=== PATIENT | male | born 1945 | race American Indian/Alaskan Native ===

== ENCOUNTER 2021-01-07 06:33 | Day surgery (SDC) | payer OTHER ==
[2021-01-02 10:14] LABS: Hematocrit 38.4 % (35.5-45.6); Hemoglobin 12.9 gm/dl (11.8-15.2); Mean Corpuscular HGB Conc 34 % (32-34); Mean Corpuscular Volume 92 fl (84-94); Platelet Count 213 K/mm3 (140-440); Red Blood Count 4.15 M/mm3 (3.65-5.03); Red Cell Distribution Width 15.3 % (13.2-15.2)
[2021-01-02 10:35] LABS: Albumin 3.3 g/dL (3.9-5); Calcium 8.9 mg/dL (8.4-10.2)
--- NOTE | 2021-01-02 10:44 | Anesthesia Consultation ---
Anesthesia Consult and Med Hx Date of service: 01/07/21 - Airway Anesthetic Teeth Evaluation: Dentures (upper and lower) ROM Head & Neck: Adequate Mental/Hyoid Distance: Adequate Mallampati Class: Class III Intubation Access Assessment: Possibly Difficult - Pulmonary Exam CTA: Yes - Cardiac Exam Cardiac Exam: RRR - Pre-Operative Health Status ASA Pre-Surgery Classification: ASA3 Proposed Anesthetic Plan: General - Pulmonary Hx Smoking: Yes (quit 1 yr) Hx Respiratory Symptoms: No COPD: Yes Home Oxygen Therapy: No Hx Sleep Apnea: No (MECHELLE PRE SCREEN HIGH RISK) - Cardiovascular System Hx Hypertension: Yes Hx Heart Attack/AMI: No Hx Percutaneous Transluminal Coronary Angioplasty (PTCA): No Hx Cardia Arrhythmia: No - Central Nervous System CVA: No Hx Psychiatric Problems: Yes (PTSD) - Endocrine Hx Renal Disease: No Hx Liver Disease: Yes (HCV s/p treatment; reports normal liver biopsy this year) Hx Insulin Dependent Diabetes: Yes (fasting BS 120s; instructed to take 1/2 dose insulin night before) Hx Thyroid Disease: No - Other Systems Hx Obesity: No - Additional Comments Anesthesia Medical History Comments: No hx anesthetic complications.
[~2021-01-07 06:33] MED LIST: GABAPENTIN 300 MG CAP PO NR; LACTATED RINGERS 1,000 ML IV SCH; MAGNESIUM OXIDE 400 MG TAB PO SCH
[2021-01-07] MEDS ORDERED: BACTERIOSTATIC SODIUM CHLORIDE 0.9% 30 ML VIAL INFILTRATI ONE (06:47)
[2021-01-07] MEDS ORDERED: GENTAMICIN/NS 80 MG/100 ML 100 ML IV SCH (07:00)
[2021-01-07] MEDS ORDERED: VANCOMYCIN/NS 1 GM/250 ML 1 GM/250 ML BAG IV NR (07:00)
--- NOTE | 2021-01-07 07:17 | Anesthesia Day of Surgery ---
Anesthesia Day of Surgery - Day of Surgery Patient Examined: Yes Patient H&P Reviewed: Yes Patient is NPO: Yes Beta Blockers: Yes
[2021-01-07] MEDS ORDERED: dexAMETHasone 20 MG/5 ML VIAL ONE (07:26)
[2021-01-07] MEDS ORDERED: LIDOCAINE MPF (2%) 20 MG/1 ML VIAL 5 ML ONE (07:26)
[2021-01-07] MEDS ORDERED: SUCCINYLCHOLINE CHLORIDE 200 MG/10 ML INJ MDV ONE (07:26)
[2021-01-07] MEDS ORDERED: fentaNYL 100 MCG/2 ML INJ ONE (07:27)
[2021-01-07] MEDS ORDERED: propofoL 200 MG/20 ML VIAL IV ONE (07:27)
[2021-01-07] MEDS ORDERED: BUPIVACAINE/PF (0.5%) 5 MG/1 ML 30 ML VIAL INFILTRATI ONE ×2 (07:29→09:14)
[2021-01-07] MEDS ORDERED: rifAMPin 600 MG VIAL ONE (07:29)
[2021-01-07] MEDS ORDERED: SODIUM CHLORIDE 0.9% 500 ML 500 ML ONE (07:29)
[2021-01-07] MEDS ORDERED: HYDROmorphone 1 MG/1 ML INJ IV PRN (07:30)
[2021-01-07] MEDS ORDERED: ONDANSETRON 4 MG/2 ML INJ IV PRN (07:30)
[2021-01-07] MEDS ORDERED: NEOMY 40 MG/POLYMYXIN B 200,000 UNITS/ML (GU) AMPULE IR ONE ×2 (07:30→09:16)
[2021-01-07] MEDS ORDERED: SODIUM CHLORIDE P/F VIAL 10 ML 10 ML ONE (07:32)
[2021-01-07] MEDS ORDERED: GENTAMICIN 40 MG/ML VIAL 2 ML ONE (07:32)
[2021-01-07] MEDS ORDERED: ONDANSETRON 4 MG/2 ML INJ ONE (07:33)
[2021-01-07] MEDS ORDERED: rifAMPin 600 MG VIAL IV ONE (09:14)
[2021-01-07] MEDS ORDERED: GENTAMICIN 40 MG/ML VIAL 2 ML IV ONE (09:15)
[2021-01-07] MEDS ORDERED: SODIUM CHLORIDE 0.9% P/F 10 ML VIAL INFILTRATI ONE (09:16)
[2021-01-07] MEDS ORDERED: SODIUM CHLORIDE 0.9% IRR 1,500 ML BOTTLE IR ONE (09:17)
[2021-01-07] MEDS ORDERED: SODIUM CHLORIDE 0.9% 500 ML IVPB IRRIGATION ONE (09:17)
[2021-01-07] MEDS ORDERED: ePHEDrine SULFATE 50 MG/1 ML INJ ONE (09:18)
--- NOTE | 2021-01-07 10:21 | Short Stay Summary ---
Short Stay Documentation Date of service: 01/07/21 - History H&P: obtained from office - Allergies and Medications Current Medications: Allergies acetaminophen [From Tylenol] Allergy (Verified 01/01/21 17:56) Nausea ibuprofen Adverse Reaction (Verified 01/07/21 07:05) Nausea/Vomiting Home Medications Medication Instructions Recorded Confirmed Last Taken Type Aspirin [Adult Aspirin] 81 mg PO DAILY 01/01/21 01/07/21 12/30/20 History [place]-3/Dha/Epa/Fish Oil [Fish Oil 1 each PO DAILY 01/01/21 01/01/21 01/06/21 History 1,000 mg Softgel] Alogliptin Benzoate [Alogliptin] 12.5 mg PO DAILY 01/02/21 01/02/21 01/06/21 History Ascorbic Acid [Vitamin C] 1,000 mg PO DAILY 01/02/21 01/02/21 01/06/21 History Cholecalciferol (Vitamin D3) 2,000 unit PO QDAY 01/02/21 01/02/21 01/06/21 History [Vitamin D3 2,000 UNIT CAP] Cyanocobalamin (Vitamin B-12) 2,500 mcg PO DAILY 01/02/21 01/02/21 01/06/21 History [Vitamin B12] Docusate Sodium [Colace] 100 mg PO DAILY 01/02/21 01/02/21 01/06/21 History Finasteride [Proscar] 5 mg PO DAILY 01/02/21 01/02/21 01/06/21 History Furosemide [Lasix] 20 mg PO QDAY 01/02/21 01/02/21 01/06/21 History Insulin Aspart (Nf) [NovoLOG 1 units SQ TID 01/02/21 01/02/21 01/06/21 History Flexpen] Insulin Glargine [Lantus VIAL] 0 units SUB-Q QHS 01/02/21 01/02/21 01/06/21 History Metoprolol [Lopressor TAB] 50 mg PO BID 01/02/21 01/02/21 01/07/21 05:55 History Multivit-Min/FA/Lycopen/Lutein 1 each PO DAILY 01/02/21 01/02/21 01/06/21 History [Centrum Silver Men Tablet] Sennosides [Senna] 8.6 mg PO DAILY 01/02/21 01/02/21 01/06/21 History amLODIPine [Norvasc] 10 mg PO DAILY 01/02/21 01/02/21 01/07/21 05:55 History Active Medications Gabapentin (Gabapentin 300 Mg Cap) 300 mg PO PREOP NR Stop: 01/07/21 20:00 Last Admin: 01/07/21 07:06 Dose: 300 mg Documented by: Hydromorphone HCl (Hydromorphone 1 Mg/1 Ml Inj) 0.25 mg IV Q10MIN PRN PRN Reason: Pain, Moderate (4-6) Stop: 01/07/21 17:00 Hydromorphone HCl (Hydromorphone 1 Mg/1 Ml Inj) 0.5 mg IV Q10MIN PRN PRN Reason: Pain , Severe (7-10) Stop: 01/07/21 17:00 Lactated Ringer's (Lactated Ringers) 1,000 mls @ 100 mls/hr IV DIRECT ISAK Stop: 01/07/21 23:59 Last Admin: 01/07/21 07:06 Dose: 100 mls/hr Documented by: Gentamicin Sulfate/Sodium Chloride (Gentamicin/Ns 80 Mg/100 Ml) 100 mls @ 200 mls/hr IV PREOP ISAK Vancomycin HCl (Vancomycin/Ns 1 Gm/250 Ml) 1 gm in 250 mls @ 166.667 mls/hr IV PREOP NR; Protocol Stop: 01/07/21 23:45 Last Admin: 01/07/21 07:25 Dose: 166.667 mls/hr Documented by: Magnesium Oxide (Magnesium Oxide 400 Mg Tab) 400 mg PO PREOP ISAK Stop: 01/07/21 20:00 Last Admin: 01/07/21 07:06 Dose: 400 mg Documented by: Ondansetron HCl (Ondansetron 4 Mg/2 Ml Inj) 4 mg IV ONCE PRN PRN Reason: Nausea And Vomiting Stop: 01/07/21 17:00 - Brief post op/procedure progress note Date of procedure: 01/07/21 Pre-op diagnosis: impotence Post-op diagnosis: same Procedure: ipp coloplast titan (22+ 1 RTE) Anesthesia: GETA Surgeon: FÁTIMA MAE Pathology: none (scrotal skin) Condition: stable - Hospital course Hospital course: pt has abx & pain pill, post op info on chart - Disposition Condition at discharge: Stable Disposition: 01 HOME / SELF CARE / HOMELESS Short Stay Discharge Plan Follow up with: SHEILA COX [Primary Care Provider] - 7 Days
[2021-01-07] MEDS: HYDROmorphone 1 MG/1 ML INJ IV PRN ×4 (10:50→11:27)
[2021-01-07 12:03] VITALS: BP 154/82
--- NOTE | 2021-01-07 14:55 | Post Anesthesia Evaluation ---
- Post Anesthesia Evaluation Patient Participated: Yes Airway Patent: Yes Stable Respiratory Function: Yes Nausea/Vomiting: No Temp > 96.8F: Yes Pain Manageable: Yes Adequeate Hydration: Yes Anesthesia Complications: No Block Receding Appropriately: Not Applicable Patient on Ventilator: No
--- NOTE | 2021-01-07 17:56 | Operative Report ---
DATE OF SURGERY: 01/07/2021 PREOPERATIVE DIAGNOSIS: Organic impotence. POSTOPERATIVE DIAGNOSIS: Organic impotence. PROCEDURE: Insertion of inflatable penile prosthesis, scrotoplasty (Coloplast 22 cm +1 cm rear tip junior recruiter). SURGEON: Michi Burgess MD ANESTHESIA: General. ESTIMATED BLOOD LOSS: Minimal. FLUIDS: Crystalloid. COMPLICATIONS: No complications. INDICATIONS: This patient is a 75-year-old gentleman with long history of erectile dysfunction. He has a history of diabetes and hypertension. He has been refractory to medical management. Discussed all the options, risks, benefits, and complications were explained. The patient agreed to proceed with surgical intervention. Due to the COVID pandemic, the patient understands he will go home today unless there is a medical contraindication. DESCRIPTION OF PROCEDURE: The patient was taken to the operative suite, placed in a supine position. After adequate general anesthesia, he was prepped and draped in a sterile fashion. Lewis catheter was placed on the operative field. A 6 mL of dilute 0.25% Marcaine was injected into the right corporal body. Transscrotal incision was made with a Bovie. Sharp dissection was taken down to the corporal bodies. Metal [place] retractor was used for exposure. A 2-0 Vicryl stay sutures were placed in the corporal bodies. Corporotomies were made bilaterally. Gentle dissection up to 11 mm with sounds was performed. Measurements of length revealed 23 cm bilaterally. Therefore, a 22 cm Coloplast Titan device was used, 125 mL reservoir was placed with the 100 mL in the balloon. The reservoir was prepped and placed in the retropubic space via the right external ring. As I said, 100 mL saline was placed without difficulty. The cylinders were prepped and placed in the corporal bodies with the aid of the Cornelio needle. Corporotomies were closed with 2-0 Vicryl in a running fashion without difficulty. Insufflation of the device revealed an excellent appearance. The pump and reservoir was connected with the quick click connection system. Internal inflation again revealed an excellent appearance. Throughout the procedure, copious irrigation was performed. Adequate hemostasis was achieved. The pump was placed in the dependent portion of the scrotum. A pursestring suture followed by running stitch of the dartos layer was used to close the incision. A second dartos layer of 2-0 Vicryl in a running fashion was also used. Redundant scrotal skin was excised. Skin was closed with 3-0 Vicryl in an interrupted fashion. Collodion was placed on the incision as well as Xeroform gauze and a mummy wrap. Penis was taped to the abdomen. Mesh pants were placed. He tolerated the procedure well. He was extubated and taken to recovery room. He has his antibiotics and pain medicine. He will have his Lewis catheter removed tomorrow in the office. TID: [id number] RECEIPT: [id number] GRIFFIN/BRENDA/DION
== END 2021-01-07 12:45 | disposition home or self-care (01) ==
LOC: OR 06:33
PROVIDERS: ATTEND Urology
DX: N52.01 Erectile dysfunction due to arterial insufficiency (principal); N52.9 Male erectile dysfunction, unspecified; E11.9 Type 2 diabetes mellitus without complications; J44.9 Chronic obstructive pulmonary disease, unspecified; I10 Essential (primary) hypertension; E78.00 Pure hypercholesterolemia, unspecified; Z79.4 Long term (current) use of insulin; Z79.82 Long term (current) use of aspirin; Z79.899 Other long term (current) drug therapy; Z98.890 Other specified postprocedural states; Z87.891 Personal history of nicotine dependence; Z88.8 Allergy status to other drugs, medicaments and biological substances; Z20.822 Contact with and (suspected) exposure to COVID-19
CPT/HCPCS: 36415; 54405; 55175; 80053; 82962; 85027; 88305; C1813; J0330; J1100; J1170; J1580; J2405; J2704; J3010; J3370; J3490; J7040; J7120; U0003